=== PATIENT | male | born 1960 | race Caucasian/White ===

== ENCOUNTER 2023-04-15 05:45 | Inpatient (IN) | payer MEDICARE, MEDICAID ==
[~2023-04-15] VITALS: Ht 167.6 cm; Wt 108.0 kg
[2023-04-15] MEDS ORDERED: ANESTHESIA TRAY IN PYXIS 1 EA TRAY MC ONE (06:53)
[2023-04-15] MEDS ORDERED: dexaMETHasone SOD PHOSPHATE 2 ML ONE (06:53)
[2023-04-15] MEDS ORDERED: VANCOMYCIN 1 GM VIAL ONE (06:53)
[2023-04-15] MEDS ORDERED: LIDOCAINE 2%-EPI 1:100,000 30 ML VIAL ONE (06:53)
[2023-04-15 07:00] VITALS: BP 111/61; TEMP 97.5; O2SAT 97
[2023-04-15] MEDS ORDERED: IV NS 0.9% 1,000 ML IV PRN (11:30)
[2023-04-15] MEDS ORDERED: ONDANSETRON HCL/PF 4 MG/2 ML VIAL IVP PRN (12:00)
[2023-04-15] MEDS ORDERED: HYDROMORPHONE 1 MG/1 ML DISP.SYRIN IV PRN (12:00)
[2023-04-15] MEDS ORDERED: Z GUARD REMEDY 4 OZ OINT TP PRN (14:30)
[2023-04-15] MEDS ORDERED: ACETAMINOPHEN 325 MG TABLET PO PRN (14:30)
[2023-04-15 16:00] VITALS: BP 113/63; TEMP 98.8; O2SAT 91
[2023-04-15] MEDS ORDERED: FURO-145 PO (16:00)
[2023-04-15] MEDS ORDERED: AMLO10TA4 PO (16:00)
[2023-04-15] MEDS ORDERED: EMPA25TA PO (16:00)
[2023-04-15] MEDS ORDERED: CHLO25TA2 PO (16:00)
[2023-04-15] MEDS ORDERED: MELO-105 PO (16:00)
[2023-04-15] MEDS ORDERED: LINA1TAB7 PO (16:00)
[2023-04-15] MEDS ORDERED: ROSU40TA PO (16:00)
[2023-04-15] MEDS ORDERED: ENAL20TA18 PO (16:00)
[2023-04-15] MEDS ORDERED: ASPI-1420 PO (16:00)
[2023-04-15] MEDS ORDERED: PIOG30TA10 PO (16:00)
[2023-04-15] MEDS ORDERED: METO25TA4 PO (16:00)
[2023-04-15 18:39] VITALS: BP 96/64; TEMP 98.8; O2SAT 91
[2023-04-15 20:00] VITALS: BP 118/62; TEMP 97.6; O2SAT 93
[2023-04-15] MEDS ORDERED: VANCOMYCIN 1 GM in IV D5W 250ml IV SCH (20:00)
== END 2023-04-15 20:35 | disposition home or self-care (01) | DRG 141 ==
LOC: DS 05:45 → MED 05:47
PROVIDERS: ADMIT Nurse Practitioner Acute Care; ATTEND Nurse Practitioner Acute Care
PROC: 0NBV0ZX Excision of Left Mandible, Open Approach, Diagnostic (ICD-10-PCS; principal; 2023-04-15)
PROC: 0NBR0ZX Excision of Maxilla, Open Approach, Diagnostic (ICD-10-PCS; 2023-04-15)
PROC: 0NBT0ZX Excision of Right Mandible, Open Approach, Diagnostic (ICD-10-PCS; 2023-04-15)
PROC: 0NSR04Z Reposition Maxilla with Internal Fixation Device, Open Approach (ICD-10-PCS; 2023-04-15)
PROC: 0NUR07Z Supplement Maxilla with Autologous Tissue Substitute, Open Approach (ICD-10-PCS; 2023-04-15)
PROC: 0NUV07Z Supplement Left Mandible with Autologous Tissue Substitute, Open Approach (ICD-10-PCS; 2023-04-15)
PROC: 0NUT07Z Supplement Right Mandible with Autologous Tissue Substitute, Open Approach (ICD-10-PCS; 2023-04-15)
PROC: 0NSV04Z Reposition Left Mandible with Internal Fixation Device, Open Approach (ICD-10-PCS; 2023-04-15)
PROC: 0NST04Z Reposition Right Mandible with Internal Fixation Device, Open Approach (ICD-10-PCS; 2023-04-15)
DX: S02.40DA Maxillary fracture, left side, initial encounter for closed fracture (principal); M87.9 Osteonecrosis, unspecified; M27.2 Inflammatory conditions of jaws; S02.609A Fracture of mandible, unspecified, initial encounter for closed fracture; X58.XXXD Exposure to other specified factors, subsequent encounter; J32.0 Chronic maxillary sinusitis; F17.200 Nicotine dependence, unspecified, uncomplicated; I25.10 Atherosclerotic heart disease of native coronary artery without angina pectoris; Z95.5 Presence of coronary angioplasty implant and graft; Z79.84 Long term (current) use of oral hypoglycemic drugs; Z79.82 Long term (current) use of aspirin; Z79.899 Other long term (current) drug therapy; Z79.01 Long term (current) use of anticoagulants; I10 Essential (primary) hypertension; E66.9 Obesity, unspecified; Z68.38 Body mass index [BMI] 38.0-38.9, adult; Z83.3 Family history of diabetes mellitus; X58.XXXA Exposure to other specified factors, initial encounter; Y92.9 Unspecified place or not applicable; D16.5 Benign neoplasm of lower jaw bone; D71 Functional disorders of polymorphonuclear neutrophils
CPT/HCPCS: 36415; 71046; 80053-TC; 85025-TC; 85730-TC; 86850-TC; 87081-TC; A4223; C1713; G0378; J0461; J0690; J1100; J2704; J3370; J3490; J7060

== ENCOUNTER → 2023-08-19 | Day surgery (SDC) | payer MEDICARE, OTHER ==
[~2023-08-19] VITALS: Ht 170.2 cm; Wt 99.8 kg
[~2023-08-19] MED LIST: ACETAMINOPHEN 325 MG TABLET PO PRN; AMLO10TA4 PO; ASPI-1420 PO; CHLO25TA2 PO; EMPA25TA PO; ENAL20TA18 PO; FAMOTIDINE/PF INJ 20 MG/2 ML VIAL IV ONE; FENTANYL PF 100MCG/2ML AMPUL ONE; FURO-145 PO; HYDROMORPHONE 1 MG/1 ML DISP.SYRIN IV PRN; IV NS 0.9% 1,000 ML IV PRN; LIDOCAINE 2%-EPI 1:100,000 30 ML VIAL ONE; LINA1TAB7 PO; MELO-105 PO; METO25TA4 PO; MIDAZOLAM HCL 2 MG/2ML VIAL ONE; ONDANSETRON HCL/PF 4 MG/2 ML VIAL IV PRN; OXYMETAZOLINE HCL NASAL SPRAY 30 ML BOTTLE NS ONE; PIOG30TA10 PO; ROCURONIUM BROMIDE 50 MG/5 ML ONE; ROSU40TA PO; SEVOFLURANE 250 ML BOTTLE IH ONE; VANCOMYCIN 1 GM VIAL ONE; dexaMETHasone SOD PHOSPHATE 1 ML ONE
== END | disposition home or self-care (01) ==
LOC: DS 09:29
PROVIDERS: ATTEND Dentist Oral and Maxillofacial Surgery
DX: T84.69XA Infection and inflammatory reaction due to internal fixation device of other site, initial encounter (principal); K12.30 Oral mucositis (ulcerative), unspecified; K09.9 Cyst of oral region, unspecified; I10 Essential (primary) hypertension; I25.10 Atherosclerotic heart disease of native coronary artery without angina pectoris; E11.9 Type 2 diabetes mellitus without complications; Z98.890 Other specified postprocedural states; Z79.899 Other long term (current) drug therapy; X58.XXXA Exposure to other specified factors, initial encounter; Y93.89 Activity, other specified; Y92.89 Other specified places as the place of occurrence of the external cause; Y99.8 Other external cause status
CPT/HCPCS: 20680; 21030; 41826; 82962; 88300; 88305; 88311; J1100; J2250; J2405; J2704; J2765; J3010; J3370; J3490; J7030; J1170

== ENCOUNTER 2024-02-16 07:48 | Inpatient (IN) | payer MEDICARE, OTHER ==
[~2024-02-16] VITALS: Ht 167.6 cm; Wt 108.0 kg
[~2024-02-16 07:48] MED LIST changes: -ACETAMINOPHEN 325 MG TABLET PO PRN; -FAMOTIDINE/PF INJ 20 MG/2 ML VIAL IV ONE; -FENTANYL PF 100MCG/2ML AMPUL ONE; -HYDROMORPHONE 1 MG/1 ML DISP.SYRIN IV PRN; -IV NS 0.9% 1,000 ML IV PRN; -LIDOCAINE 2%-EPI 1:100,000 30 ML VIAL ONE; +LORAZEPAM 1 MG TABLET ONE; -MIDAZOLAM HCL 2 MG/2ML VIAL ONE; -ONDANSETRON HCL/PF 4 MG/2 ML VIAL IV PRN; -OXYMETAZOLINE HCL NASAL SPRAY 30 ML BOTTLE NS ONE; -ROCURONIUM BROMIDE 50 MG/5 ML ONE; -SEVOFLURANE 250 ML BOTTLE IH ONE; -VANCOMYCIN 1 GM VIAL ONE; -dexaMETHasone SOD PHOSPHATE 1 ML ONE
[2024-02-16] MEDS ORDERED: VASOPRESSIN INJ 20 UNIT/ML VIAL ONE (08:38)
[2024-02-16] MEDS ORDERED: FENTANYL PF 250MCG/5ML AMPUL ONE (08:38)
[2024-02-16] MEDS ORDERED: ROCURONIUM BROMIDE 50 MG/5 ML ONE (08:38)
[2024-02-16] MEDS ORDERED: SUCCINYLCHOLINE CHLORIDE 20 MG/ML VIAL ONE (08:38)
[2024-02-16] MEDS ORDERED: LABETALOL 20 MG/4 ML VIAL ONE (08:39)
[2024-02-16] MEDS ORDERED: METOPROLOL TARTRATE INJ 5 MG/5 ML AMPUL ONE (08:39)
[2024-02-16] MEDS ORDERED: ALBUTEROL SULFATE 8 GM HFA.AER.AD ONE (08:40)
[2024-02-16] MEDS ORDERED: OXYMETAZOLINE HCL NASAL SPRAY 30 ML BOTTLE NS ONE (08:40)
[2024-02-16] MEDS ORDERED: HYDROMORPHONE INJ 2 MG/ML DISP.SYRIN ONE (09:05)
[2024-02-16] MEDS ORDERED: VANCOMYCIN 1 GM VIAL ONE (09:10)
[2024-02-16 09:29] LABS: CALCIUM, SERUM 8.9 mg/dL (8.5-10.1); POTASSIUM 3.2 mmol/L (3.5-5.1)
[2024-02-16] MEDS ORDERED: LIDOCAINE 2%-EPI 1:100,000 30 ML VIAL ONE (10:43)
[2024-02-16] MEDS ORDERED: IV NS 0.9% 1,000 ML IV PRN (13:30)
[2024-02-16] MEDS ORDERED: HYDROMORPHONE 1 MG/1 ML DISP.SYRIN IV PRN (13:30)
[2024-02-16] MEDS ORDERED: ONDANSETRON HCL/PF 4 MG/2 ML VIAL IV PRN (13:30)
[2024-02-16] MEDS: VANCOMYCIN 1 GM in IV D5W 250ml IV SCH (21:12)
[2024-02-16] MEDS: ACETAMINOPHEN 325 MG TABLET PO PRN (21:46)
== END 2024-02-16 22:35 | disposition left against medical advice (07) | DRG 908 ==
LOC: DS 07:48 → MED 12:19
PROC: 0NPW04Z Removal of Internal Fixation Device from Facial Bone, Open Approach (ICD-10-PCS; principal; 2024-02-16)
PROC: 0NUT0JZ Supplement Right Mandible with Synthetic Substitute, Open Approach (ICD-10-PCS; 2024-02-16)
PROC: 0NUR07Z Supplement Maxilla with Autologous Tissue Substitute, Open Approach (ICD-10-PCS; 2024-02-16)
PROC: 0NBV0ZZ Excision of Left Mandible, Open Approach (ICD-10-PCS; 2024-02-16)
PROC: 0NBR0ZZ Excision of Maxilla, Open Approach (ICD-10-PCS; 2024-02-16)
PROC: 0NST04Z Reposition Right Mandible with Internal Fixation Device, Open Approach (ICD-10-PCS; 2024-02-16)
PROC: 0NSR04Z Reposition Maxilla with Internal Fixation Device, Open Approach (ICD-10-PCS; 2024-02-16)
PROC: 0N5T0ZZ Destruction of Right Mandible, Open Approach (ICD-10-PCS; 2024-02-16)
DX: T86.831 Bone graft failure (principal); S02.40CK Maxillary fracture, right side, subsequent encounter for fracture with nonunion; S02.40DK Maxillary fracture, left side, subsequent encounter for fracture with nonunion; S02.609K Fracture of mandible, unspecified, subsequent encounter for fracture with nonunion; T84.69XA Infection and inflammatory reaction due to internal fixation device of other site, initial encounter; X58.XXXD Exposure to other specified factors, subsequent encounter; I10 Essential (primary) hypertension; E11.9 Type 2 diabetes mellitus without complications; Y92.009 Unspecified place in unspecified non-institutional (private) residence as the place of occurrence of the external cause; F17.200 Nicotine dependence, unspecified, uncomplicated; E66.9 Obesity, unspecified; Z68.38 Body mass index [BMI] 38.0-38.9, adult; I25.10 Atherosclerotic heart disease of native coronary artery without angina pectoris; M27.2 Inflammatory conditions of jaws; Y83.2 Surgical operation with anastomosis, bypass or graft as the cause of abnormal reaction of the patient, or of later complication, without mention of misadventure at the time of the procedure; M27.40 Unspecified cyst of jaw; J32.9 Chronic sinusitis, unspecified
CPT/HCPCS: 36415; 80048-TC; 80053-TC; 85025-TC; 85730-TC; A4223; A4338; C1713; G0378; J0330; J1171; J2405; J2704; J2765; J3010; J3370; J3490; J7030; J7060

== ENCOUNTER 2024-06-15 09:09 | Inpatient (IN) | payer MEDICARE, OTHER ==
[~2024-06-15] VITALS: Ht 182.9 cm; Wt 108.0 kg
[~2024-06-15 09:09] MED LIST changes: -LORAZEPAM 1 MG TABLET ONE
[2024-06-15] MEDS ORDERED: LIDOCAINE 2%-EPI 1:100,000 30 ML VIAL ONE (11:38)
[2024-06-15] MEDS ORDERED: dexaMETHasone SOD PHOSPHATE 1 ML ONE (11:38)
[2024-06-15] MEDS ORDERED: VANCOMYCIN 1 GM VIAL ONE (11:39)
[2024-06-15] MEDS ORDERED: OXYMETAZOLINE HCL NASAL SPRAY 30 ML BOTTLE NS ONE (11:39)
[2024-06-15] MEDS ORDERED: LABETALOL HCL IV 100MG VIAL ONE (12:34)
[2024-06-15] MEDS ORDERED: ONDANSETRON HCL/PF 4 MG/2 ML VIAL IV PRN (14:00)
[2024-06-15] MEDS ORDERED: ACETAMINOPHEN 325 MG TABLET PO PRN (14:00)
[2024-06-15] MEDS ORDERED: HYDROMORPHONE 1 MG/1 ML DISP.SYRIN IV PRN (14:00)
[2024-06-15 16:09] VITALS: BP 131/71; TEMP 98.2; O2SAT 97
[2024-06-15 17:00] VITALS: BP 131/71; TEMP 98.2; O2SAT 97
[2024-06-15] MEDS: IV NS 0.9% 1,000 ML IV PRN (19:50)
[2024-06-15 20:00] VITALS: BP 119/64; TEMP 98.8; O2SAT 92
[2024-06-15 20:34] VITALS: BP 119/64; TEMP 98.8; O2SAT 92
[2024-06-15] MEDS: VANCOMYCIN 1 GM in IV D5W 250ml IV SCH (22:36)
[2024-06-15] MEDS: AMLODIPINE BESYLATE 5 MG TABLET PO SCH (23:11)
[2024-06-15 23:12] VITALS: BP 119/59; TEMP 98.8; O2SAT 94
[2024-06-16 08:30] VITALS: BP 120/59; TEMP 98.2; O2SAT 98
[2024-06-16] MEDS: METOPROLOL SUCCINATE 25 MG TAB.SR.24H PO SCH (08:41)
[2024-06-16] MEDS: ENALAPRIL MALEATE (10 MG) 10 MG TABLET PO SCH (08:44)
[2024-06-16] MEDS ORDERED: HOME MED MISCELLANEOUS XX SCH (09:30)
[2024-06-16] MEDS ORDERED: METOPROLOL SUCCINATE 25 MG TAB.SR.24H PO SCH (09:30)
[2024-06-16] MEDS ORDERED: MELOXICAM 7.5 MG TABLET PO PRN (09:30)
[2024-06-16] MEDS: ASPIRIN EC 81 MG TABLET.DR PO SCH (09:30)
[2024-06-16] MEDS ORDERED: AMLODIPINE BESYLATE 10 MG TABLET PO SCH (09:30)
[2024-06-16 09:51] VITALS: BP 120/59; TEMP 98.8; O2SAT 94
[2024-06-16] MEDS: PIOGLITAZONE HCL 15 MG TABLET PO SCH (10:00)
[2024-06-16] MEDS ORDERED: LINAGLIPTIN 5 MG TABLET PO SCH (10:00)
[2024-06-16] MEDS ORDERED: ATORVASTATIN 40 MG TABLET PO SCH (22:00)
[2024-06-17] MEDS ORDERED: LINAGLIPTIN 5 MG TABLET PO SCH (09:00)
[2024-06-17] MEDS ORDERED: FUROSEMIDE 20 MG TABLET PO SCH (09:00)
[2024-06-17] MEDS ORDERED: ENALAPRIL MALEATE (10 MG) 10 MG TABLET PO SCH (09:00)
[2024-06-17] MEDS ORDERED: EMPAGLIFLOZIN 25 MG TABLET PO SCH (09:00)
== END 2024-06-16 15:14 | disposition home or self-care (01) | DRG 496 ==
LOC: DS 09:09 → MED 14:15
PROVIDERS: ADMIT Nurse Practitioner Acute Care; ATTEND Nurse Practitioner Acute Care
PROC: 0N5R0ZZ Destruction of Maxilla, Open Approach (ICD-10-PCS; principal; 2024-06-15 12:40)
PROC: 0WB30ZZ Excision of Oral Cavity and Throat, Open Approach (ICD-10-PCS; principal; 2024-06-15 12:40)
PROC: 0N5V0ZZ Destruction of Left Mandible, Open Approach (ICD-10-PCS; principal; 2024-06-15 12:40)
PROC: 0N5T0ZZ Destruction of Right Mandible, Open Approach (ICD-10-PCS; principal; 2024-06-15 12:40)
PROC: 0NPW04Z Removal of Internal Fixation Device from Facial Bone, Open Approach (ICD-10-PCS; principal; 2024-06-15 12:40)
DX: T84.69XA Infection and inflammatory reaction due to internal fixation device of other site, initial encounter (principal); T81.83XA Persistent postprocedural fistula, initial encounter; Y83.8 Other surgical procedures as the cause of abnormal reaction of the patient, or of later complication, without mention of misadventure at the time of the procedure; Y92.89 Other specified places as the place of occurrence of the external cause; D10.39 Benign neoplasm of other parts of mouth; E11.9 Type 2 diabetes mellitus without complications; E66.9 Obesity, unspecified; Z68.32 Body mass index [BMI] 32.0-32.9, adult; I25.10 Atherosclerotic heart disease of native coronary artery without angina pectoris; E78.5 Hyperlipidemia, unspecified; I10 Essential (primary) hypertension; F17.210 Nicotine dependence, cigarettes, uncomplicated
CPT/HCPCS: 82962-TC; 88300-TC; 88305-TC; 88311-TC; A4223; A4338; G0378; J0461; J0690; J1100; J1171; J2704; J3370; J3490; J7030; J7060